=== PATIENT | female | born 1970 | race Caucasian/White ===

== ENCOUNTER → 2017-02-06 | Outpatient (CLI) | payer SELFPAY ==
[~2017-02-06] MED LIST: ADVIL200 MG PO; COLACE 100100 MG/CAP PO; IBU600 MG PO; NORCO 325 MG-51 TAB PO; TYLENOL 500MG500 MG PO
== END ==
LOC: COL.RAD 10:30
DX: M79.89 Other specified soft tissue disorders (principal)

== ENCOUNTER 2017-02-13 05:39 | Day surgery (SDC) | payer SELFPAY ==
[~2017-02-13] VITALS: Ht 170.2 cm; Wt 65.3 kg
[2017-02-13 06:12] VITALS: BP 114/70; PULSE 62; TEMP 98.2
[2017-02-13] MEDS ORDERED: TYLENOL 500MG500 MG PO (06:32)
[2017-02-13] MEDS ORDERED: ADVIL200 MG PO (06:33)
[2017-02-13] MEDS ORDERED: COLACE 100100 MG/CAP PO (09:26)
[2017-02-13] MEDS ORDERED: NORCO 325 MG-51 TAB PO (09:27)
[2017-02-13] MEDS ORDERED: IBU600 MG PO (09:27)
[2017-02-13 10:05] VITALS: BP 102/56; PULSE 72; TEMP 97.7
[2017-02-13 10:20] VITALS: BP 100/68; PULSE 72
[2017-02-13 10:50] VITALS: BP 100/65; PULSE 65
[2017-02-13 11:05] VITALS: BP 102/61; PULSE 66
[2017-02-13 11:30] VITALS: BP 99/60; PULSE 63
== END 2017-02-13 12:54 | disposition home or self-care (01) ==
LOC: SDCO 05:39
DX: K40.90 Unilateral inguinal hernia, without obstruction or gangrene, not specified as recurrent (principal); Z82.49 Family history of ischemic heart disease and other diseases of the circulatory system
CPT/HCPCS: C1781; J0690; J1100; J1885; J2270; J2405; J2704; J2710; J3010; J7120

== ENCOUNTER → 2018-12-02 | Outpatient (CLI) | payer OTHER | LOC: MC.RAD 09:19 | DX: Z12.31 Encounter for screening mammogram for malignant neoplasm of breast (principal); N64.89 Other specified disorders of breast; N64.4 Mastodynia ==

== ENCOUNTER → 2018-12-08 | Outpatient (CLI) | payer OTHER | LOC: MC.RAD 13:20 | DX: N64.89 Other specified disorders of breast (principal) | CPT/HCPCS: G0279 ==

== ENCOUNTER 2019-05-28 05:43 | Day surgery (SDC) | payer SELFPAY ==
[2019-05-28] VITALS (11 sets, daily range): BP systolic 97–125; BP diastolic 56–85; PULSE 59–74; TEMP 97.5–98.4
[~2019-05-28] VITALS: Ht 165.1 cm; Wt 71.6 kg
--- NOTE | 2019-05-28 09:50 | NUR ---
Patient to room 220 via bed from PACU. Assessment completed. Patient is alert and oriented, but sleepy. O2 per NC at 2L per postop orders. IV to left hand with with LR infusing per protocol. 3 incisions to abdomen CDI. Peripad in place, no vaginal bleeding noted. SCDs on. Recovery VS started. Family at bedside. Call light within reach.
--- NOTE | 2019-05-28 21:00 | NUR ---
1829- Report from STEVIE Guzman. SCD's off per request. 2029- Patient voided. 550ml out. 2099- Encouraged IS and SCD's. Patient has complaints of a headache. Scheduled Ibuprofen given. Will continue to monitor.
[2019-05-29] VITALS: BP 92/53; PULSE 61; TEMP 98.1
[2019-05-29 04:00] VITALS: BP 97/59; PULSE 59; TEMP 98.2
[2019-05-29 08:35] VITALS: BP 101/59; PULSE 71; TEMP 98.8
[2019-05-29] MEDS ORDERED: IBU600 MG PO (09:44)
[2019-05-29] MEDS ORDERED: PERCOCET 325 MG1 TA2 PO (09:44)
--- NOTE | 2019-05-29 11:15 | NUR ---
Patients daughter at bedside and translating for patient. Dishcharge instuctions given and questions answered. Patient verbalizes understanding. 1130: Patient off unit via wheelchair with this RN and daughter and spouse.
--- NOTE | 2019-05-29 12:53 | NUR ---
prayed with patient and family before they were discharged.
== END 2019-05-29 11:30 | disposition home or self-care (01) ==
LOC: SDCO 05:43 → OB 12:16 → SDCO 05-29 11:30
DX: N95.0 Postmenopausal bleeding (principal); D25.2 Subserosal leiomyoma of uterus; N83.291 Other ovarian cyst, right side; N85.00 Endometrial hyperplasia, unspecified; Z88.0 Allergy status to penicillin
CPT/HCPCS: OP; J0690; J1885; J2270; J2405; J2704; J2710; J3010; J7120

== ENCOUNTER → 2020-07-20 | Outpatient (CLI) | payer SELFPAY ==
[~2020-07-20] MED LIST changes: +PERCOCET 325 MG1 TA2 PO
== END ==
LOC: COL.LAB 15:44
DX: M31.6 Other giant cell arteritis (principal)

== ENCOUNTER → 2021-12-05 | Outpatient (CLI) | payer SELFPAY | LOC: COL.RAD 15:55 | DX: M54.2 Cervicalgia (principal); R20.2 Paresthesia of skin ==